=== PATIENT | female | born 1990 | race Asian ===

== ENCOUNTER 2024-01-12 09:53 | Emergency (ER) | payer OTHER, MEDICAID ==
[~2024-01-12] VITALS: Ht 170.2 cm; Wt 73.7 kg
[2024-01-12] MEDS: cloNIDine HCL 0.1 MG TAB PO ONE (10:19)
[2024-01-12 10:39] LABS: Basophils # (auto) 0 10 ^3/uL (0-0.2); Basophils % (auto) 0.5 % (0.0-2.0); Eosinophils # (auto) 0.3 10 ^3/uL (0-0.8); Eosinophils % (auto) 3.2 % (0.0-7.0); Hemoglobin 13.5 g/dL (12.2-16.2); Lymphocytes # (auto) 1.7 10 ^3/uL (0.4-5.4); Lymphocytes % (auto) 18.4 % (10.0-50.0); Mean Corpuscular Hemoglobin 32.3 pg (28.0-32.0); Mean Corpuscular Hgb Conc. 35.4 g/dL (32.0-36.0); Mean Corpuscular Volume 91.1 fL (80.0-100.0); Monocytes # (auto) 0.6 10 ^3/uL (0-1.3); Monocytes % (auto) 7.1 % (0.0-12.0); Neutrophils # (auto) 6.5 10 ^3/uL (1.6-8.6); Neutrophils % (auto) 70.8 % (37.0-80.0); Nucleated Red Blood Cells % 0.2 %; Red Blood Cells 4.17 10^6/uL (4.0-5.20); Red Cell Distribution Width 13.7 % (11.8-14.3); White Blood Cell 9.2 10^3/uL (4.4-10.8)
[2024-01-12 10:46] LABS: Chloride 104 mmol/L (98-107); Potassium 3.6 mmol/L (3.5-5.1); Sodium 140 mmol/L (136-145)
[2024-01-12 10:47] LABS: Anion Gap 5 (5-15); Carbon Dioxide 31 mmol/L (20-30)
[2024-01-12 10:48] LABS: Calcium 10.2 mg/dL (8.5-10.1)
[2024-01-12 10:52] LABS: BUN/Creatinine Ratio 22.1 (10.0-20.0); Blood Urea Nitrogen 17 mg/dL (9-23); Glucose 94 mg/dL (74-106)
[2024-01-12] MEDS ORDERED: LOSA50TA30 PO (10:57)
[2024-01-12 16:20] VITALS: BP 191/95; PULSE 75; RESP 18; TEMP 98.2; O2SAT 99
== END 2024-01-12 16:21 | disposition home or self-care (01) ==
LOC: ER 09:53
DX: I16.0 Hypertensive urgency (principal); Z98.890 Other specified postprocedural states; Z79.899 Other long term (current) drug therapy
CPT/HCPCS: 36415; 80048; 85025; 93005